=== PATIENT | female | born 2005 | race Two or more races ===

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

== ENCOUNTER 2023-01-18 15:18 | Outpatient (AMB) | payer OTHER, SELFPAY ==
--- NOTE | 2023-01-18 15:20 | MHC.OFFVIS ---
Intake Vital Signs 01/18/23 15:21 Height 5 ft 1 in Weight 202 lb 13.204 oz BMI 38.3 BP 102/60 Blood Pressure Location Rt brachial Position Sitting Pulse 85 Pulse Source Doppler Pulse Oximetry (%) 100 Oxygen Delivery Method Room Air Intake Visit Reasons: asthma Intake Note: Patient is here for a follow up on asthma, patient stated she needs albuterol, also has questions about refills on montelukast and zyrtec Allergies No Known Allergies Allergy (Verified 01/18/23 15:23) HPI HPI Comments History of Present Illness Details The patient is an 17-year-old woman with a history of asthma. She has a positive family history of asthma as well. He had been in [facility] until the last few months which she has had worsening asthma symptoms. She has been on multiple asthma medications including Advair initially 115/21 and recently increased to 230/21. She was also placed on antihistamine therapy and also on Singulair. Back in February the patient started developing chest pain and she did go to the ER. There she did have his chest x-ray demonstrating no acute disease and she had blood work which was all reassuring. Her eosinophil level was within normal limits. The patient has had a allergy testing in the past although not recently. She does have triggers such as viral syndrome for may activate her asthma. Although now she believes she has other triggers involved. As far as mold exposure she does states that some degree of fatty and moisture coming from her closet. The patient is also having significant nasal congestion. She has had eczema in the past although no longer is noticed any significant eczema. The patient does not have any significant reflux symptoms. She denies any pets. He will plan to continue with current respiratory regimen at this time. We did talk about adding a long-acting muscarinic antagonist. However, in view of her significant degree of medications will wait for the results of the blood work and also wait for the results of the pulmonary function studies to better address her ongoing symptoms and further medication management. If the patient however continues to have worsening symptoms prior to the next visit she can always call and we will optimize her respiratory by adding LABA therapy. 06/04/2022 the patient is here for a pulmonary follow-up visit. Overall the patient is doing a little better. She is continue to use her Advair and the singular. Still having coughing [id number] severity. Also feeling chest tightness. We did review pulmonary function studies which were reassuring without any fixed obstruction. However we did review her allergy testing demonstrating very severe allergies to dust mites. Unfortunately she has carpets in her room. We did talk about the importance of hyperlipidemia coverage for her bedding also the importance of removal of the scar pets in view of her very severe allergic reaction she should try to avoid sleeping in that room in the meantime. we talked about considering biologic therapy such as the use of Xolair which may be helpful in minimizing her allergic reactions. although, the 1st step is to minimize the allergic exposures such as removing the carpets in using the hypercoagulation it covers and then reassessing symptoms after that. 01/18/2023 the patient is here for pulmonary follow-up visit. The patient overall has been doing well on current therapy. Although she does have a cough. The cough is nonproductive in nature. It has been a little bit more frequent lately. Denies any fevers or chills. Her symptoms worsen if she develops any significant ingestion she can start a Z-Dany. She denies any need for prednisone or recent flare-ups. The patient has a rescue inhaler that she uses typically less than twice a week. She does need her medications updated. We did talk about her allergies. She has significant allergies specially to dust mite. We talked about the importance of hypoallergenic covers and HEPA filter vacuums and also minimizing carpets and rugs. At this point the patient does not require any biologic therapy. She will continue with current respiratory therapy will follow-up in a year's time. If the patient has any worsening symptoms prior to the next visit she will call the office for an earlier assessment. [facility] Medical History (Updated 05/01/22 @ 20:26 by Kar Benoit MD) Allergies Chronic allergic rhinitis Asthma Social History Patient Tobacco Use Status: Never used Tobacco Review of Systems Const Denies fatigue and Denies fever(s) Eyes Denies change in vision ENT Reports nasal congestion and Reports nasal discharge Card Denies chest pain Resp Reports cough and Reports wheezing GI Denies dyspepsia Musc Reports no additional complaints Skin/Breast Denies rash Neuro Reports no additional complaints Endo Denies fatigue and Denies flushing Aly/Lymph Denies easy bleeding Aller/Immun Denies GI upset with certain foods and Reports wheezing Physical Exam Vital Signs: Last Vital Signs Pulse 85 01/18/23 15:21 BP 102/60 01/18/23 15:21 Pulse Ox 100 01/18/23 15:21 Oxygen Delivery Method Room Air 01/18/23 15:21 BMI result Body Mass Index 38.3 Const General: comfortable HEENT Head: Yes normocephalic Eyes General: appearance normal, both eyes and all related structures Neck Neck: Yes supple Chest Chest palpation & inspection: normal inspection of the chest Resp Effort & Inspection: normal respiratory effort Auscultation: diminished lung sounds Cardio Rate: regular rate Rhythm: regular rhythm Heart sounds: S1 normal heart sound present and S2 normal heart sound present GI Auscultation: normal bowel sounds Skin General skin exam: no rashes or lesions noted Extrem General: Yes no clubbing, cyanosis or edema Assessment & Plan Assessment & Plan (1) Allergies: Code(s): T78.40XA - Allergy, unspecified, initial encounter Qualifiers: Encounter type: initial encounter Qualified Code(s): T78.40XA - Allergy, unspecified, initial encounter (2) Chronic allergic rhinitis: Code(s): J30.9 - Allergic rhinitis, unspecified (3) Asthma: Code(s): J45.909 - Unspecified asthma, uncomplicated Qualifiers: Asthma severity: moderate Asthma persistence: persistent Asthma complication type: uncomplicated Qualified Code(s): J45.40 - Moderate persistent asthma, uncomplicated Plan continue Advair HFA 230/21 removal of carpets and hypoallergenic covers consider Xolair continue singular continue zyrtec TONY as needed F/U 8-12 months Orders: Referrals Allergy & Immunology Referral J45.909 - Unspecified asthma, uncomplicated Medications: New albuterol sulfate 2.5 mg (3 mL) inhalation Q6H 30 days PRN 180 mL 11RF shortness of breath or wheezing azithromycin 500 mg PO DAILY 3 days 3 tabs 0RF albuterol sulfate 90 mcg/actuation 2 inhalations inhalation Q6H 30 days PRN 8.5 grams 12RF shortness of breath or wheezing J44.9 - Chronic obstructive pulmonary disease, unspecified Changed From montelukast 10 mg PO DAILY To montelukast 10 mg PO DAILY 90 days 90 tabs 3RF From cetirizine (Zyrtec) 10 mg PO DAILY PRN To cetirizine (Zyrtec) 10 mg PO DAILY 90 days 90 tabs 3RF From fluticasone propion-salmeterol 115-21 mcg/actuation (Advair HFA) 2 puffs inhalation Q12H To fluticasone propion-salmeterol 115-21 mcg/actuation (Advair HFA) 2 puffs inhalation Q12H 30 days 12 grams 11RF Coding Level of Care Code Est Pt Level 4 (26344) Diagnoses Allergy, initial encounter T78.40XA Encounter type: initial encounter Chronic allergic rhinitis J30.9 Moderate persistent asthma without complication J45.40 Asthma severity: moderate Asthma persistence: persistent Asthma complication type: uncomplicated Time Spent (min) 16
[2023-01-18 15:21] VITALS: BP 102/60; PULSE 85; O2SAT 100; BMI 38.3
== END 2023-01-18 16:13 | disposition home or self-care (01) ==
PROVIDERS: PCP Nurse Practitioner Family; Visit Provider Hospitalist
DX: T78.40XA Allergy, unspecified, initial encounter (principal); J30.9 Allergic rhinitis, unspecified; J45.40 Moderate persistent asthma, uncomplicated
CPT/HCPCS: 99214

== ENCOUNTER → 2023-01-18 15:18 | Outpatient (BNVA) | payer OTHER, SELFPAY | PROVIDERS: PCP Nurse Practitioner Family; Visit Provider Hospitalist | DX: J45.40 Moderate persistent asthma, uncomplicated (principal); J30.9 Allergic rhinitis, unspecified; T78.40XA Allergy, unspecified, initial encounter | CPT/HCPCS: 99212 ==

== ENCOUNTER → 2023-11-07 09:30 | Outpatient (BNV) | payer OTHER, SELFPAY | PROVIDERS: Visit Provider Psychiatry & Neurology Psychiatry | DX: F34.89 Other specified persistent mood disorders (principal); F90.1 Attention-deficit hyperactivity disorder, predominantly hyperactive type; F42.8 Other obsessive-compulsive disorder | CPT/HCPCS: 90837; 99213; 99214; 99499 ==

== ENCOUNTER 2023-11-08 08:30 | Outpatient (REF) | payer OTHER, SELFPAY ==
[2023-11-08 08:43] LABS: MANUAL DIFF FLAG NO
[2023-11-08 09:19] LABS: Basophils Absolute Auto 0.1 X10*3/uL (0.0-0.2); Basophils Percent Auto 0.7 % (0-2); Eosinophils Absolute Auto 0.5 X10*3/uL (0.0-0.4); Eosinophils Percent Auto 5.4 % (0-4); Hematocrit 41.2 % (37.0-47.0); Hemoglobin 13.5 g/dl (12.0-16.0); Imm Gran Abs Auto 0.04 X10*3/uL (0.00-0.03); Imm Gran Pct Auto 0.5 % (0.0-0.4); Lymphocytes Absolute Auto 1.8 X10*3/uL (1.2-4.9); Lymphocytes Percent Auto 21.4 % (20-40); Mean Corpuscular HGB Conc 32.8 g/dl (31.0-35.0); Mean Corpuscular Hemoglobin 27.8 pg (27.0-33.0); Mean Corpuscular Volume 84.9 fL (80.0-98.0); Mean Platelet Volume 9.8 fL (9.4-12.3); Monocytes Absolute Auto 0.5 X10*3/uL (0.1-1.2); Neutrophils Absolute Auto 5.5 x10*3/uL (2.0-8.3); Platelet Count 265 X10*3/uL (160-400); Red Blood Count 4.85 X10*6/uL (4.20-5.50); Red Cell Distribution Width 13.8 % (11.0-16.0); White Blood Count 8.3 X10*3/uL (4.8-10.8)
[2023-11-08 09:28] LABS: Estimated Average Glucose 97 mg/dL
[2023-11-08 09:58] LABS: Alanine Aminotransferase 17 U/L (0-31); Albumin Level 4.4 g/dL (3.5-5.0); Alkaline Phosphatase 97 U/L (39-117); Anion Gap 10 (12-20); Aspartate Amino Transferase 16 U/L (5-31); Bilirubin Total 0.4 mg/dL (0.0-1.0); Blood Urea Nitrogen 9 mg/dL (9-16); Calcium 9.4 mg/dL (8.4-10.2); Carbon Dioxide 27 mmol/L (22-29); Chloride 106 mmol/L (96-108); Cholesterol 201 mg/dL (<200); Estimated Glomerular Filt Rate > 60; Glucose Random 85 mg/dL (60-115); HDL Cholesterol 57 mg/dL (>40); Iron 44 mcg/dL (30-160); LDL Cholesterol Calculated 128 mg/dL (<100); Percent Iron Saturation 15 % (15-50); Potassium 4.1 mmol/L (3.3-5.1); Sodium 139 mmol/L (135-145); Total Iron Binding Capacity 291 mcg/dL (228-428); Total Protein 7.1 g/dL (6.5-8.0); Triglycerides 84 mg/dL (<150); Unsaturated Iron Binding 247 ug/dL
[2023-11-08 10:06] LABS: Ferritin 16 ng/mL (10-122); Free T4 (Free Thyroxine) 0.85 ng/dL (0.71-1.85); Thyroid Stimulating Hormone 0.57 uIU/mL (0.32-4.0); Vitamin D 25-OH Total 38.4 ng/mL (>30)
[2023-11-08 10:58] LABS: Vitamin B12 448 pg/mL (200-900)
== END 2023-11-08 08:31 | disposition home or self-care (01) ==
LOC: HO.LAB 08:30
PROVIDERS: Visit Provider Psychiatry & Neurology Psychiatry
DX: F39 Unspecified mood [affective] disorder (principal)
CPT/HCPCS: 36415; 80053; 80061; 82306; 82607; 82728; 82746; 83036; 83540; 84439; 84443; 85025

== ENCOUNTER 2023-11-19 10:15 | Outpatient (RCR) | payer OTHER, SELFPAY ==
[2023-11-06 11:53] VITALS: BMI 38.2
[2023-11-06 11:54] VITALS: BP 108/60; PULSE 84; TEMP 37.3
--- NOTE | 2023-11-06 12:36 | PC.NURSE ---
Patient is a 18 year old single female who was referred to [facility] by [facility] crisis and her therapist d/t increased depression with passive SI and anxiety. 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 Reports much guilt and shame regarding this. Feels this is stopping her from making progress in her life. Reports history of trauma. 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 Patient denied using substances. Will very occasionally have a sip of an alcoholic beverage. Patient is alert and oriented x4. Calm and cooperative. Presented with depressed mood and anxious affect. Denied SI stating, Not currently however, when I'm having low lows about my addiction . Reports having thoughts stating, If I was I wouldn't have to feel anything . Denied any plans or intent of killing herself. Stated, I don't want to . Medications reconciled with patient and patient's pharmacy. She reports taking medications as prescribed. She has a best friend Balaji who is very supportive.
--- NOTE | 2023-11-07 16:38 | HO.PHP ---
Client's case has been opened and reviewed in team.
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
--- NOTE | 2023-11-15 12:02 | HO.PHPPROGNO ---
Subjective Subjective Date of Service: 11/15/23 Reason For Visit: anxiety,trauma Interim History: I relapsed Saturday night Had been experiencing a lot of heightened anxiety throughout the day, overhtinking, difficulty settling down. Just got the thought to do it, and then acted on it. Describes periods of getting super hyperverbal, jittery, I get so much trapped energy, my hands start sweating I dont know why . This last happened on Saturday and gives other examples which appear to occur in a context of overstimulated social environments. She also notes another time getting a print out from [facility] with the dx of Compulsive Sexual Behavior which made her really anxious and sent her down a spiral of overthinking and self incrimination, catastrophizing. Her history as well as observable symptoms appear to align more with ADHD than OCD. Impulsivity seem more characteristic of her sexualized behaviors, not so much compulsions aside from the self harming thoughts korey occur as a result of the shame stemming from acting on sexual impulses. Furthermore Wellbutrin has not made her obsessive thinking or anxiety worse, and fact feels there were some improvements in her mood, and modestly with anxiety and focus. She has previousl bee on Trileptal, does not recall if this was helpful Medication Compliance: Yes Side effects from medications: No Attending Groups: Yes Review of Systems Acute medical concerns: No Mental Status Exam Mental Status Exam Narrative: Alert, oriented, in no acute distress. Pleasant, calm, cooperative, engaged, well-related. No psychomotor agitation or neurovegetative retardation. Eye contact maintained. Mood okay ,anxious, affect variable, mood congruent, brighter than expected, animated. Speech normal. Thought process linear, coherent, goal-directed. Thought content related to stressors, self-criticism, feelings of helplessness, currently denies any hopelessness or SI. Denies any aggressive ideation or HI. No paranoia or delusional content elicited. No evidence of psychosis. Insight good, and judgment fair/good. Diagnostics Vital Signs (24Hr): BMI result Body Mass Index 38.2 Assessment & Plan Assessment & Plan (1) Other specified persistent mood disorders: Status: Acute Code(s): F34.89 - Other specified persistent mood disorders (2) ADHD, predominantly hyperactive-impulsive subtype: Status: Acute Code(s): F90.1 - Attention-deficit hyperactivity disorder, predominantly hyperactive type (3) Other obsessive-compulsive disorder: Status: Acute Code(s): F42.8 - Other obsessive-compulsive disorder Plan start Abilify 2 mg qd start guanfacine ER 1 mg qam plan to start Vyvanse 10 mg next week continue Wellbutrin 300 mg qam decrease escitalopram to 5 mg qd continue lorazepam 0.5 mg qhs prn anxiety continue hydroxyzine 25-50 mg qd prn anxiety, sleep continue other medications - albuterol inhaler, montelukast 10 mg, cetirizine 10 mg, azelastine nasal spray, OCP, melatonin reviewed lab work - including elevated LDL continue to monitor Patient educated on: diagnosis and medication risk/benefits Informed Consent: understands Reason for contiued partial hosp. stay Substantial Risk for: rapid decompensation and med/psych decompensation Certification I certify that partial hospital treatment is medically necessary due to the symptoms and problems resulting from the patient's mental illness and the failure to treat the patient at the partial hospital level of care would likely result in the patient requiring inpatient psychiatric care which could not be prevented at a less intensive level of care. Total time managing care of this patient today __30__ minutes. Discharge Plan Discharge Attending provider: Lupe Pandya Additional Instructions: Luly has an OP therapist, Alana Cali ([facility]), in which her next scheduled appointment is on November 11, 2023 at 4 PM. Luly has a med provider, Mishel Sarmiento ([facility]), in which her next scheduled appointment is on December 03, 2023 at 10:40 AM virtually. Medications: New aripiprazole 2 mg tablet 2 mg PO BEDTIME Qty: 14 0RF guanfacine 1 mg tablet extended release 24 hr 1 mg PO DAILY Qty: 14 0RF lisdexamfetamine 10 mg capsule 10 mg PO QAM Qty: 30 0RF Rx Instructions: Partial Fill upon patient request. No Action albuterol sulfate 2.5 mg /3 mL (0.083 %) solution for nebulization 2.5 mg inhalation Q4-6H PRN (Reason: shortness of breath or wheezing) escitalopram oxalate 10 mg Tablet 10 mg PO DAILY bupropion HCl 300 mg Tablet Extended Release 24 Hr 300 mg PO QAM hydroxyzine HCl 25 mg tablet 25 - 50 mg PO DAILY PRN (Reason: Insomnia) melatonin 5 mg Tablet 5 mg PO BEDTIME PRN (Reason: Insomnia) levonorgestrel-ethinyl estrad [Vienva] 0.1-20 mg-mcg tablet 1 tab PO DAILY azelastine 137 mcg (0.1 %) Brea,Non-Aerosol 1 - 2 spray INTRANASAL BID PRN (Reason: Allergy Symptoms) Rx Instructions: administer into each nostril lorazepam 0.5 mg tablet 0.5 mg PO BEDTIME PRN (Reason: Anxiety) montelukast 10 mg tablet 10 mg PO DAILY 90 Days Qty: 90 3RF cetirizine [Zyrtec] 10 mg tablet 10 mg PO DAILY 90 Days Qty: 90 3RF albuterol sulfate 90 mcg/actuation HFA aerosol inhaler 2 inh inhalation Q6H PRN (Reason: shortness of breath or wheezing) 30 Days Qty: 8.5 12RF Stand Alone Forms: Patient Portal Discharge page Print Language: Wolof
--- NOTE | 2023-11-19 12:06 | P.PNPSP_ITS ---
Subjective Subjective Date of Service: 11/19/23 Reason For Visit: anxiety,trauma Interim History: Patient seen for follow-up, anticipating discharge at the end of program today.?Started on ABlify and says she is doing fine with this . [place] a little sleepy with the guanfacine by itself but with Vyvanse feels this will work better. She has been sleeping well. She has an appointment with Mishel Ng on 12/02. Reports no acute issues or concerns. Medication compliant, medications well-tolerated. Denies any adverse effects.? Mood is stable.? Denies any hopelessness or SI. Denies thoughts of harming self or others at this time. Denies any aggressive ideation or HI. Denies any paranoia or AH or VH. Sleep, appetite, energy stable. Mental Status Exam Mental Status Exam Narrative: In no acute distress. Alert, oriented. Pleasant, calm, cooperative, engaged, well-related. Mood stable, affect appropriate. Speech normal. Thought process linear, coherent, goal-directed. Thought content related to stressors, denies any hopelessness or SI. Denies any aggressive ideation or HI. No paranoia or delusional content elicited. No evidence of psychosis. Insight good, and judgment fair/good. Diagnostics Vital Signs (24Hr): BMI result Body Mass Index 38.2 Assessment & Plan Assessment & Plan (1) Other specified persistent mood disorders: Status: Acute Code(s): F34.89 - Other specified persistent mood disorders (2) ADHD, predominantly hyperactive-impulsive subtype: Status: Acute Code(s): F90.1 - Attention-deficit hyperactivity disorder, predominantly hyperactive type (3) Other obsessive-compulsive disorder: Status: Acute Code(s): F42.8 - Other obsessive-compulsive disorder Plan Discharge from [facility] continue Abilify 2 mg qd continue guanfacine ER 1 mg qam cotninue Vyvanse 10 mg next week continue Wellbutrin 300 mg qam decrease escitalopram to 5 mg qd continue lorazepam 0.5 mg qhs prn anxiety continue hydroxyzine 25-50 mg qd prn anxiety, sleep continue other medications - albuterol inhaler, montelukast 10 mg, cetirizine 10 mg, azelastine nasal spray, OCP, melatonin Lab work was reviewed with patient Refills sent to pharmacy Will defer further medication management to outpatient provider *Safety plan reviewed *Discharge diagnoses, treatment course, discharge plan have been reviewed with patient (including medication regime, medication management, potential side effects) as well as treatment rationale were also revisited *Discharge paperwork signed and given to patient, copy sent for scanning to chart Patient educated on: diagnosis and medication risk/benefits Informed Consent: understands Reason for contiued partial hosp. stay Substantial Risk for: stable for discharge Certification I certify that partial hospital treatment is medically necessary due to the symptoms and problems resulting from the patient's mental illness and the failure to treat the patient at the partial hospital level of care would likely result in the patient requiring inpatient psychiatric care which could not be prevented at a less intensive level of care. Total time managing care of this patient today __30__ minutes. Discharge Plan Discharge Attending provider: Lupe Pandya Additional Instructions: Luly has an OP therapist, Alana Cali ([facility]), in which her next scheduled appointment is on November 11, 2023 at 4 PM. Luly has a med provider, Mishel Sarmiento ([facility]), in which her next scheduled appointment is on December 03, 2023 at 10:40 AM virtually. Medications: New lisdexamfetamine 10 mg capsule 10 mg PO QAM Qty: 30 0RF Rx Instructions: Partial Fill upon patient request. escitalopram oxalate 5 mg tablet 5 mg PO DAILY Qty: 20 0RF Continued albuterol sulfate 2.5 mg /3 mL (0.083 %) solution for nebulization 2.5 mg inhalation Q4-6H PRN (Reason: shortness of breath or wheezing) bupropion HCl 300 mg Tablet Extended Release 24 Hr 300 mg PO QAM hydroxyzine HCl 25 mg tablet 25 - 50 mg PO DAILY PRN (Reason: Insomnia) melatonin 5 mg Tablet 5 mg PO BEDTIME PRN (Reason: Insomnia) levonorgestrel-ethinyl estrad [Vienva] 0.1-20 mg-mcg tablet 1 tab PO DAILY azelastine 137 mcg (0.1 %) Allen,Non-Aerosol 1 - 2 spray INTRANASAL BID PRN (Reason: Allergy Symptoms) Rx Instructions: administer into each nostril guanfacine 1 mg tablet extended release 24 hr 1 mg PO DAILY Qty: 30 0RF aripiprazole 2 mg tablet 2 mg PO BEDTIME Qty: 30 0RF lorazepam 0.5 mg tablet 0.5 mg PO BEDTIME PRN (Reason: Anxiety) montelukast 10 mg tablet 10 mg PO DAILY 90 Days Qty: 90 3RF cetirizine [Zyrtec] 10 mg tablet 10 mg PO DAILY 90 Days Qty: 90 3RF albuterol sulfate 90 mcg/actuation HFA aerosol inhaler 2 inh inhalation Q6H PRN (Reason: shortness of breath or wheezing) 30 Days Qty: 8.5 12RF Discontinued escitalopram oxalate 10 mg Tablet 10 mg PO DAILY Stand Alone Forms: Patient Portal Discharge page Patient Education: Mood Disorders (DC) Print Language: Bhutanese
--- NOTE | 2023-11-29 09:32 | PM.EVENT ---
Event Note Date of Service: 12/05/23 Event Note: Patient requesting refills on her medications which were efaxed to pharmacy. Time Spent With Patient Time: Total time managing care of this patient today __5__ minutes.
== END 2023-11-19 23:59 | disposition home or self-care (01) ==
LOC: HO.PHPA 10:15
PROVIDERS: Visit Provider Psychiatry & Neurology Psychiatry
DX: F63.89 Other impulse disorders (principal); F39 Unspecified mood [affective] disorder; F90.1 Attention-deficit hyperactivity disorder, predominantly hyperactive type; F34.89 Other specified persistent mood disorders; F42.8 Other obsessive-compulsive disorder; Z79.899 Other long term (current) drug therapy
CPT/HCPCS: 90791; 90853

== ENCOUNTER 2024-12-04 14:29 | Outpatient (AMB) | payer OTHER, SELFPAY ==
[2024-12-04 14:32] VITALS: BP 116/72; PULSE 90; O2SAT 100; BMI 43.5
--- NOTE | 2024-12-04 14:32 | A.OFFVIS_ITS ---
Vital Signs 12/04/24 14:32 Height 5 ft 1 in Weight 230 lb 6.129 oz BMI 43.5 BP 116/72 Blood Pressure Location Lt brachial Position Sitting Pulse 90 Pulse Source Pulse Oximeter Pulse Oximetry (%) 100 Oxygen Delivery Method Room Air Intake Visit Reasons: Asthma Accompanied by: Self / Same As Patient Allergies tree nut Allergy (Verified 12/04/24 14:35) Itching, cough, triggers asthma. wheat Allergy (Verified 12/04/24 14:35) Itching, cough, triggers Asthma. HPI Comments Details: The patient is an 19-year-old woman with a history of asthma. She has a positive family history of asthma as well. He had been in [facility] health unit until the last few months which she has had worsening asthma symptoms. She has been on multiple asthma medications including Advair initially 115/21 and recently increased to 230/21. She was also placed on antihistamine therapy and also on Singulair. Back in February the patient started developing chest pain and she did go to the ER. There she did have his chest x-ray demonstrating no acute disease and she had blood work which was all reassuring. Her eosinophil level was within normal limits. The patient has had a allergy testing in the past although not recently. She does have triggers such as viral syndrome for may activate her asthma. Although now she believes she has other triggers involved. As far as mold exposure she does states that some degree of fatty and moisture coming from her closet. The patient is also having significant nasal congestion. She has had eczema in the past although no longer is noticed any significant eczema. The patient does not have any significant reflux symptoms. She denies any pets. He will plan to continue with current respiratory regimen at this time. We did talk about adding a long-acting muscarinic antagonist. However, in view of her significant degree of medications will wait for the res ults of the blood work and also wait for the results of the pulmonary function studies to better address her ongoing symptoms and further medication management. If the patient however continues to have worsening symptoms prior to the next visit she can always call and we will optimize her respiratory by adding LABA therapy. 06/04/2022 the patient is here for a pulmonary follow-up visit. Overall the patient is doing a little better. She is continue to use her Advair and the singular. Still having coughing [id number] severity. Also feeling chest tightness. We did review pulmonary function studies which were reassuring without any fixed obstruction. However we did review her allergy testing demonstrating very severe allergies to dust mites. Unfortunately she has carpets in her room. We did talk about the importance of hyperlipidemia coverage for her bedding also the importance of removal of the scar pets in view of her very severe allergic reaction she should try to avoid sleeping in that room in the meantime. we talked about considering biologic therapy such as the use of Xolair which may be helpful in minimizing her allergic reactions. although, the 1st step is to minimize the allergic exposures such as removing the carpets in using the hypercoagulation it covers and then reassessing symptoms after that. 01/18/2023 the patient is here for pulmonary follow-up visit. The patient overall has been doing well on current therapy. Although she does have a cough. The cough is nonproductive in nature. It has been a little bit more frequent lately. Denies any fevers or chills. Her symptoms worsen if she develops any significant ingestion she can start a Z-Dany. She denies any need for prednisone or recent flare-ups. The patient has a rescue inhaler that she uses typically less than twice a week. She does need her medications updated. We did talk about her allergies. She has significant allergies specially to dust mite. We talked about the importance of hypoallergenic covers and HEPA filter vacuums and also minimizing carpets and rugs. At this point the patient does not require any biologic therapy. She will continue with current respi ratory therapy will follow-up in a year's time. If the patient has any worsening symptoms prior to the next visit she will call the office for an earlier assessment. 12/04/2024 the patient is here for pulmonary follow-up visit. She continues with her allergy symptoms. Last night she did have allergy symptoms since she took a Benadryl and she did feel better this morning. She does respond good to the antihistamine such as Claritin and also uses her Singulair. She does not see much improvement with the Advair HFA but she does use it. The patient had been seen Allergy in the past but she stopped. Will go ahead and refer her to another fire operations forester so she can continue to be assess since she has a significant allergy and she may be a good candidate for immunotherapy in addition to Xolair. She can have that discussion further with allergy. In the meantime will continue with the current respiratory regimen. She does have nasal congestion. Astelin nasal spray may be helpful. If the patient needs additional histamine therapy an H2 jamar may also be effective. Will follow-up in a year's time if she has any issues prior to that she will call for an earlier assessment. [facility] Medical History (Updated 11/16/23 @ 13:43 by Lupe Pandya MD) Asthma PCOS (polycystic ovarian syndrome) Allergies Chronic allergic rhinitis Social History Household Members: Family Patient Tobacco Use Status: Never used Tobacco Review of Systems Const Denies fatigue and Denies fever(s) Eyes Denies change in vision ENT Reports nasal congestion and Reports nasal discharge Card Denies chest pain Resp Reports cough and Reports wheezing GI Denies dyspepsia Musc Reports no additional complaints Skin/Breast Denies rash Neuro Reports no additional complaints Endo Denies fatigue and Denies flushing Aly/Lymph Denies easy bleeding Aller/Immun Denies GI upset with certain foods and Reports wheezing Physical Exam Vital Signs: Last Vital Signs Pulse 90 12/04/24 14:32 BP 116/72 12/04/24 14:32 Pulse Ox 100 12/04/24 14:32 Oxygen Delivery Method Room Air 12/04/24 14:32 BMI result Body Mass Index 43.5 Const General: comfortable HEENT Head: Yes normocephalic Eyes General: appearance normal, both eyes and all related structures Neck Neck: Yes supple Chest Chest palpation & inspection: normal inspection of the chest Resp Effort & Inspection: normal respiratory effort Auscultation: diminished lung sounds Cardio Rate: regular rate Rhythm: regular rhythm Heart sounds: S1 normal heart sound present and S2 normal heart sound present GI Auscultation: normal bowel sounds Skin General skin exam: no rashes or lesions noted Extrem General: Yes no clubbing, cyanosis or edema Assessment & Plan Assessment & Plan (1) Allergies: Code(s): T78.40XA - Allergy, unspecified, initial encounter Category: Medical Qualifiers: Encounter type: initial encounter Qualified Code(s): T78.40XA - Allergy, unspecified, initial encounter (2) Chronic allergic rhinitis: Code(s): J30.9 - Allergic rhinitis, unspecified Category: Medical (3) Asthma: Code(s): J45.909 - Unspecified asthma, uncomplicated Category: Medical Qualifiers: Asthma complication type: uncomplicated Asthma persistence: persistent Asthma severity: moderate Qualified Code(s): J45.40 - Moderate persistent asthma, uncomplicated Plan continue Advair HFA 230/21 removal of carpets and hypoallergenic covers consider Xolair continue singular continue zyrtec TONY as needed start Astelin nasal spray Allergy referral F/U 8-12 months Orders: Referrals Allergy & Immunology Referral J45.909 - Unspecified asthma, uncomplicated Medications: New azelastine administer into each nostril 2 sprays intranasal BID 30 mL 6RF 30 days Refilled albuterol sulfate 2.5 mg (3 mL) inhalation Q4-6H PRN 180 mL 11RF shortness of breath or wheezing Coding Level of Care Code Est Pt Level 4 (21860) Diagnoses Allergy, initial encounter T78.40XA Encounter type: initial encounter Chronic allergic rhinitis J30.9 Moderate persistent asthma without complication J45.40 Asthma complication type: uncomplicated Asthma persistence: persistent Asthma severity: moderate Time Spent (min) 16
== END 2024-12-04 14:55 | disposition home or self-care (01) ==
LOC: HO.HPS 14:30
PROVIDERS: Visit Provider Hospitalist
DX: T78.40XA Allergy, unspecified, initial encounter (principal); J30.9 Allergic rhinitis, unspecified; J45.40 Moderate persistent asthma, uncomplicated
CPT/HCPCS: 99214

== ENCOUNTER → 2024-12-04 14:29 | Outpatient (BNVA) | payer OTHER, SELFPAY | PROVIDERS: Visit Provider Hospitalist | DX: J45.40 Moderate persistent asthma, uncomplicated (principal); J30.9 Allergic rhinitis, unspecified; T78.40XA Allergy, unspecified, initial encounter | CPT/HCPCS: 99212 ==